=== PATIENT | male | born 1990 | race Caucasian/White ===

== ENCOUNTER 2017-05-22 22:37 | Emergency (ER) | payer SELFPAY ==
[~2017-05-22] VITALS: Ht 170.2 cm; Wt 81.5 kg
[2017-05-22 23:22] VITALS: BP 140/99
== END 2017-05-22 23:22 | disposition home or self-care (01) ==
LOC: EME 22:37
DX: F10.129 Alcohol abuse with intoxication, unspecified (principal); Y90.8 Blood alcohol level of 240 mg/100 ml or more; Z02.89 Encounter for other administrative examinations; F17.200 Nicotine dependence, unspecified, uncomplicated
CPT/HCPCS: 99281; 99283

== ENCOUNTER 2017-08-20 19:44 | Emergency (ER) | payer SELFPAY ==
[~2017-08-20] VITALS: Ht 172.7 cm; Wt 77.8 kg
[2017-08-20 20:30] VITALS: BP 113/89
== END 2017-08-20 20:31 ==
LOC: EME → EDBD 19:44 → EME 19:44
DX: F10.121 Alcohol abuse with intoxication delirium (principal); F17.200 Nicotine dependence, unspecified, uncomplicated
CPT/HCPCS: 99281; 99283

== ENCOUNTER 2017-08-27 04:41 | Emergency (ER) | payer SELFPAY ==
[~2017-08-27] VITALS: Ht 172.7 cm; Wt 75.0 kg
[2017-08-27 04:43] VITALS: BP 147/105
== END 2017-08-27 05:59 | disposition home or self-care (01) ==
LOC: EME 04:41
PROC: 0HQ1XZZ Repair Face Skin, External Approach (ICD-10-PCS; principal; 2017-08-27)
DX: S01.21XA Laceration without foreign body of nose, initial encounter (principal); S02.2XXA Fracture of nasal bones, initial encounter for closed fracture; W50.0XXA Accidental hit or strike by another person, initial encounter; Y93.83 Activity, rough housing and horseplay; E78.5 Hyperlipidemia, unspecified; I10 Essential (primary) hypertension; F17.200 Nicotine dependence, unspecified, uncomplicated
CPT/HCPCS: 70160; 99281; 99283